=== PATIENT | female | born 1955 | race Caucasian/White ===

== ENCOUNTER 2022-07-19 06:18 | Inpatient (IN) | payer OTHER ==
[~2022-07-19] VITALS: Ht 157.5 cm; Wt 127.2 kg
[2022-07-19 07:45] LABS: BASOPHILS ABSOLUTE AUTO 0.02 K/mm3 (0.00-0.23); BASOPHILS PERCENT AUTO 0 % (0-2); EOSINOPHILS ABSOLUTE AUTO 0.25 K/mm3 (0.00-0.68); EOSINOPHILS PERCENT AUTO 2 % (0-6); Hematocrit 40.6 % (33.0-51.0); Hemoglobin 13.4 g/dL (11.5-16.0); IMMATURE GRAN ABSOLUTE AUTO 0.09 K/mm3 (0.00-0.10); IMMATURE GRAN PERCENT AUTO 1 % (0-1); LYMPHOCYTES ABSOLUTE AUTO 1.49 K/mm3 (0.84-5.20); LYMPHOCYTES PERCENT AUTO 13 % (21-46); MONOCYTES ABSOLUTE AUTO 1.12 K/mm3 (0.16-1.47); MONOCYTES PERCENT AUTO 10 % (4-13); Mean Corpuscular HGB 29.8 pg (26.0-34.0); Mean Corpuscular Volume 90 fL (80-100); NEUTROPHILS ABSOLUTE AUTO 8.47 K/mm3 (1.96-9.15); NEUTROPHILS PERCENT AUTO 74 % (41-73); RDW Coefficient Variation 14.6 % (11.7-14.2); RDW Standard Deviation 48.3 fL (35.1-46.3); White Blood Cell Count 11.44 K/mm3 (4.00-11.30)
[2022-07-19 08:06] LABS: Albumin, Blood 3.3 g/dL (3.4-5.0); Albumin/Globulin Ratio 0.9 (0.8-1.8); Bilirubin, Total 0.3 mg/dL (0.1-1.0); Bun/Creatinine Ratio 27.3 (12.0-20.0); Calcium, Blood 8.9 mg/dL (8.5-10.1); Creatinine, Blood 0.73 mg/dL (0.40-1.00); Globulin, Blood 3.7 g/dL (2.2-4.0); Potassium, Blood 4.1 mmol/L (3.5-5.5)
[2022-07-19 08:14] LABS: Platelet Count 236 K/mm3 (150-400)
[2022-07-19 08:50] LABS: Influenza A, PCR NEGATIVE (NEGATIVE); Influenza B, PCR NEGATIVE (NEGATIVE); SARS-Cov-2 (COVID-19) PCR, MMC NEGATIVE (NEGATIVE)
[2022-07-19 10:07] LABS: Resp Syncytial Virus, PCR POSITIVE (NEGATIVE)
[2022-07-19] MEDS ORDERED: METO50ER PO (11:46)
[2022-07-19] MEDS ORDERED: ALBU2.5V5 INH (11:47)
[2022-07-19] MEDS ORDERED: MONT10T PO (11:47)
[2022-07-19] MEDS ORDERED: Flonase 0.05% N16 GM (11:48)
[2022-07-19] MEDS ORDERED: OMEP20ER PO (11:48)
[2022-07-19] MEDS ORDERED: MULVITA PO (11:49)
[2022-07-19] MEDS ORDERED: ALBU90OI INH (11:49)
[2022-07-19] MEDS ORDERED: TRAZ100 PO (11:50)
--- NOTE | 2022-07-19 16:09 | NUR ---
SHIFT SUMMARY PT A NEW ADMIT FROM THE ED, REPORT RECEIVED FROM MARY JANE. PT IS CURRENTLY ON 5 L O2 NC AND HAS A CPAP, CONTINUOUS PULSE OX IS APPLIED. PT AOX4. ABLE TO AMBULATE TO THE BS COMMODE. PURWICK IN PLACE DUE TO PT'S SOB UPON EXCERTION. NO C/O P/N/V/CP THIS SHIFT. WILL REPORT TO ONCOMING NURSE.
--- NOTE | 2022-07-20 05:52 | NUR ---
Patient has wheezing intermittently, PRN resp treatment give. Toradol given x2 for pain. Patient barking cough is productive. Overnight patient is on CPAP, NC 5L during the day. Sats remain 92 and above. No questions or concerns at this time.
--- NOTE | 2022-07-20 15:54 | NUR ---
SHIFT SUMMARY PT RESTING QUIETLY AT START OF SHIFT. WOKE EASILY FOR CARE. RT TX'S GIVEN PER EMAR AND PT REQUEST. DR KO IN TO SEE PT EARLY; NEW ORDERS PLACED. MEDICATIONS ADJUSTED. PT STILL HAVING COUGHING EPISODES, BUT IMPROVED FROM YESTERDAY. PT REPORTED CBG'S UP FROM BASELINE D/T STEROIDS. PT MEDICATED X1 TO PRESENT FOR C/O PAIN FROM COUGHING EARLIER TODAY. COUGH MED GIVEN WELL. PT'S BP UP THIS AFTERNOON; SEE CHART. PRN HYDRALZINE TO BE GIVEN PER EMAR. PT DENIES FURTHER NEEDS AT THIS TIME. CALL LT IN REACH.
--- NOTE | 2022-07-21 07:11 | NUR ---
CUSTOMER RELATIONS COORDINATOR SUMMARY: A&Ox4. PLEASANT AND COOPERATIVE WITH CARE. CALLS APPROPRIATELY AND IS ABLE TO COMMUNICATE NEEDS EFFECTIVELY. TWO EPISODES OF EXTREME DYSPNEA ACCOMPANIED BY WHAT APPEARED TO BE PANIC; PT WAKES UP AND CANNOT BREATHE, CAUSING HER TO PANIC AND SPIRALS. BREATHING Tx INCREASED TO q1h PRN AND ENCOURAGED TO STAY ON HER CPAP MACHINE. SHE HAS BEEN KNOWN TO RIP THIS OFF OF HER FACE WHEN HAVING AN EPISODE OF ANXIETY DUE TO FEELING CLAUSTROPHOBIC. OBTAINED ORDER FOR PRN ATIVAN 0.5MG IV Q8H. FIRST DOSE ADMINISTERED THIS EVENING. PT PROPPED IN BED WITH LOTS OF PILLOWS AND WAS OFFERED A RECLINER, WHICH WAS PLACED IN HER ROOM FOR WHEN SHE IS READY TO UTILIZE IT. VITAL SIGNS REMAIN STABLE. PRN ROBITUSSIN ADMINISTERED Q4H PRN. WILL REPORT TO ONCOMING RN.
--- NOTE | 2022-07-21 17:54 | NUR ---
SHIFT SUMMARY NO ACUTE CHANGES THIS SHIFT BUT PT APPEARS TO HAVE IMPROVED. SHE DID REQUEST ATIVAN FOR ANXIETY AND TRAMADOL FOR A MCDONALD THIS SHIFT, TIMES ARE ON THE EMAR. SHE IS AOX4 AND ON 5 L NC. SHE IS ALSO USING THE CPAP DURING THE DAY WHEN SHE WANTS TO SLEEP. WILL REPORT TO ONCOMING NURSE.
--- NOTE | 2022-07-22 06:04 | NUR ---
SHIFT SUMMARY 66 YR F ADMITTED ON 07/20/22 FOR RSV/SOB. FULL CODE. NO ACUTE CHANGES THIS SHIFT. PT ASKED FOR ANXIETY MEDS ONCE THIS SHIFT AND APPEARS TO HAVE RESTED COMFORTABLY AND SLEPT WELL FOR MOST OF THE SHIFT. SHE HAD SEVERAL BREATHING TX PER RT AND THEY APPEAR TO BE AFFECTIVE. SHE HAS WORN HER CPAP FOR ENTIRE SHIFT. SHE IS PLEASANT AND COOPERATIVE WITH CARE. PUREWICK IN PLACE.
--- NOTE | 2022-07-22 16:32 | NUR ---
PATIENT IS ALERT AND ORIENTED AND COOPERATIVE WITH CARE. PATIENT WEARS 3L O2 VIA NC BUT BECOMES SOB EASILY AND THEN PUTS ON HER CPAP WITH 3L BLEED IN. RT PROVIDES BREATHING TREATMENTS PRN. PATIENT IS 1PA TO [facility] BUT BECOMES DYSPNEIC WITH TRANSFERRING. SHE HAD A BM TODAY. PUREWICK IS IN PLACE PER PT REQUEST. PATIENT'S SISTER CALLED FOR AN UPDATE TODAY AND RN VERIFIED WITH PATIENT THAT AN UPDATE COULD BE PROVIDED TO HER SISTER. THE PATIENT'S SISTER STATED THAT THE PATIENT WEARS HER HOME CPAP NEARLY 3 QUARTERS OF THE DAY AT HOME AND THEN AT NIGHT TOO. METOPROLOL XL STARTED THIS AM. WILL CONTINUE TO MONITOR
--- NOTE | 2022-07-23 04:39 | NUR ---
SHIFT SUMMARY PATIENT IS ALERT AND ORIENTED. PATIENT HAS BEEN COOPERATIVE WITH CARE THIS SHIFT. PATIENT HAS BEEN WEARING CPAP MOST OF SHIFT WITH 2L BLEED IN. RT HAS BEEN PROVIDING BREATHING TREATMENTS NEEDED. PATIENT HAS BEEN RESTING ALL SHIFT WITH OCCASIONAL REQUESTS FOR SNACKS. PATIENT HAS HAD NO COMPLAINTS OF PAIN, NAUSEA, VOMITTING OR SOB THIS SHIFT. BED IN LOCKED AND LOWEST POSITION. WILL MONITOR UNTIL SHIFT CHANGE.
[2022-07-23 11:37] LABS: Bun/Creatinine Ratio 43.4 (12.0-20.0); Calcium, Blood 8.6 mg/dL (8.5-10.1); Creatinine, Blood 0.69 mg/dL (0.40-1.00); Potassium, Blood 4.2 mmol/L (3.5-5.5)
--- NOTE | 2022-07-23 19:41 | NUR ---
PT ALERT NO S/S OF ACUTE DISTRESS. SAFETY MEASURES IN PLACE REPORT GIVEN TO ON COMING NURSE.
--- NOTE | 2022-07-24 06:00 | NUR ---
END OF SHIFT NURSING REPORT - PM Admitted for COPD exacerbation, takes oxygen 2LNC when awake and CPAP at bedtime. She is on isolation for RSV, has a hacking-productive cough with carlos mucous. Had a bath during the shift, and linean changed. Medicated for pain, anxiety and cough with PRN medications as ordered. She slept throgh the night with no acute events.
[2022-07-24] MEDS ORDERED: MIRALAX17 GM PO (11:54)
[2022-07-24] MEDS ORDERED: DOCU100 PO (11:54)
[2022-07-24] MEDS ORDERED: FURO40 PO (11:54)
[2022-07-24] MEDS ORDERED: PRED20 PO (11:56)
[2022-07-24] MEDS ORDERED: LOSA25 PO (11:56)
[2022-07-24] MEDS ORDERED: GUAI600T33 PO (11:57)
== END 2022-07-24 12:51 | disposition home health service (06) | DRG 189 ==
LOC: ER 06:18 → MEDS 06:19
PROVIDERS: Emergency Medicine; Internal Medicine; ADMIT Internal Medicine
DX: J96.01 Acute respiratory failure with hypoxia (principal); J44.1 Chronic obstructive pulmonary disease with (acute) exacerbation; J21.0 Acute bronchiolitis due to respiratory syncytial virus; Z20.822 Contact with and (suspected) exposure to COVID-19; Z28.21 Immunization not carried out because of patient refusal; I50.9 Heart failure, unspecified; R73.9 Hyperglycemia, unspecified; T38.0X5A Adverse effect of glucocorticoids and synthetic analogues, initial encounter; G47.33 Obstructive sleep apnea (adult) (pediatric); I11.0 Hypertensive heart disease with heart failure; Z90.49 Acquired absence of other specified parts of digestive tract; Z98.891 History of uterine scar from previous surgery; Z99.89 Dependence on other enabling machines and devices
CPT/HCPCS: 0241U; 36415; 71046; 80048; 80053; 82947; 83880; 85025; 93005; 93010; 94640; 94644; 94660; 94664; 94761; 94762; 96372; 96374; 96375; 96376; 97116; 97162; 97530; 99285-25; A9270; G0378; J0360; J1650; J1885; J2060; J2930